=== PATIENT | female | born 1970 | race Caucasian/White ===

== ENCOUNTER 2016-09-04 14:57 | Emergency (ER) | payer OTHER ==
[~2016-09-04] VITALS: Ht 157.5 cm; Wt 51.3 kg
[~2016-09-04 14:57] MED LIST: TORADOL10 MG PO
[2016-09-04 16:02] LABS: ABSOLUTE BASOPHIL COUNT 0 /CUMM (0.0-0.2); ABSOLUTE EOSINOPHIL COUNT 0.1 /CUMM (0.0-0.7); ABSOLUTE GRANULOCYTE CT 4.4 /CUMM (1.4-6.5); ABSOLUTE LYMPH COUNT 2.3 /CUMM (1.2-3.4); ABSOLUTE MONOCYTE COUNT 0.4 /CUMM (0.10-0.60); BASOPHIL % 0.4 % (0.0-2.0); EOSINOPHIL % 1.2 % (0-5); GRANULOCYTE % 60.7 % (42.2-75.2); HEMATOCRIT 39.9 % (37-47); MEAN CORPUSCULAR HGB 30.4 PG (27.0-31.0); MEAN CORPUSCULAR HGB CONC 33.8 G/DL (33.0-37.0); MEAN CORPUSCULAR VOLUME 89.9 FL (81.0-99.0); MEAN PLATELET VOLUME 8.2 FL (7.4-10.4); PLATELET COUNT 314 /CUMM (130-400); RBC DISTRIBUTION WIDTH 13.9 % (11.5-14.5); RED BLOOD CELL CT 4.44 /CUMM (4.20-5.40); WHITE BLOOD CELL COUNT 7.2 /CUMM (4.8-10.8)
--- NOTE | 2016-09-04 16:19 | ED GENERAL ADULT ---
History of Present Illness General Chief Complaint: General Adult Stated Complaint: DIZZY,?LOW BP Source: patient, family, old records Exam Limitations: no limitations Vital Signs & Intake/Output Vital Signs & Intake/Output Vital Signs Date Time Temp Pulse Resp B/P Pulse O2 O2 Flow FiO2 Ox Delivery Rate 09/04 1729 96.5 73 18 104/52 100 Room Air 09/04 1529 98.3 78 15 124/84 100 Room Air Allergies Coded Allergies: No Known Allergies (09/04/16) Reconcile Medications Lorazepam 0.5 MG TABLET 1 TAB PO DAILY PRN ANXIETY (Reported) Multivitamin (Multi-Day Vitamins) 1 EACH TABLET 1 TAB PO DAILY SUPPLEMENT ( Reported) Norgestimate-Ethinyl Estradiol (Ortho Tri-Cyclen Lo Tablet) [id number] LO TABLET 1 TAB PO DAILY CONTROL (Reported) Triage Note: PT TO ED FOR DIZZINESS, NAUSEA, HAND AND ARM TINGLING WELL LIP TINGLING. DENIES CP, PALPITATIONS. REPORTING SHE WAS AT WORK AND "ALL OF SUDDEN FELT REALLY DIZZY." DENIES SYNCOPE OR LOC. Triage Nurses Notes Reviewed? yes HPI: Patient ate lunch at work this afternoon and on with active gas she began to feel nauseous and just not feeling right. Patient went and sat in the bathroom but symptoms escalated. Patient then felt very lightheaded to the point that she felt like she was in the past out. Patient noticed that her hands and her lips were tingling. Patient denied any chest pain or palpitations. The symptoms lasted in total approximately 45 minutes before her boss drove her into the emergency room for evaluation. Currently the patient feels fine. Patient denies any headache or blurry vision. Past History Travel History Traveled to [place] past 21 day No Medical History Any Pertinent Medical History? see below for history Neurological: NONE EENT: NONE Cardiovascular: NONE Respiratory: NONE Gastrointestinal: NONE Hepatic: NONE Renal: NONE Musculoskeletal: NONE Psychiatric: NONE Endocrine: NONE Blood Disorders: NONE Cancer(s): NONE PULP PILER/Reproductive: NONE Other Medical Hx: Anxiety Surgical History Surgical History: NONE Psychosocial History What is your primary language Sen[place]alese Tobacco Use: Never used ETOH Use: denies use Illicit Drug Use: denies illicit drug use Family History Hx Contributory? No Review of Systems Review of Systems Constitutional: Reports: see HPI, chills. EENTM: Reports: no symptoms. Respiratory: Reports: no symptoms. Cardiovascular: Reports: no symptoms. GI: Reports: see HPI, nausea. Genitourinary: Reports: no symptoms. Musculoskeletal: Reports: no symptoms. Skin: Reports: no symptoms. Neurological/Psychological: Reports: see HPI. Hematologic/Endocrine: Reports: no symptoms. Immunologic/Allergic: Reports: no symptoms. All Other Systems: Reviewed and Negative Physical Exam Physical Exam General Appearance: well developed/nourished, alert, awake, mild distress Head: atraumatic, normal appearance Eyes: Bilateral: PERRL, EOMI. Ears, Nose, Throat: normal pharynx, normal ENT inspection, hearing grossly normal Neck: normal inspection, supple, full range of motion Respiratory: normal breath sounds, chest non-tender, no respiratory distress, lungs clear Cardiovascular: regular rate/rhythm, normal peripheral pulses Gastrointestinal: normal bowel sounds, soft, non-tender, no organomegaly Back: normal inspection, normal range of motion Extremities: normal inspection, normal capillary refill, normal range of motion, no edema Neurologic/Psych: no motor/sensory deficits, awake, alert, oriented x 3, normal gait, normal mood/affect Skin: intact, normal color, warm/dry Lymphatic: no anterior cervical edmond Core Measures ACS in differential dx? Yes ASA ordered for poss ACS? No-ACS ruled out CVA/TIA Diagnosis: No Severe Sepsis Present: No Septic Shock Present: No Progress Differential Diagnoses I considered the following diagnoses in my evaluation of the patient: [ Electrolyte abnormality, AMI, vasovagal episode] Plan of Care: Orders Procedure Date/time Status TROPONIN LEVEL 09/04 1806 Active Telemetry/Salesperson Wigs 09/04 1628 Active TROPONIN LEVEL 09/04 1530 Complete COMPREHENSIVE METABOLIC PANEL 09/04 1530 Complete CBC WITHOUT DIFFERENTIAL 09/04 1530 Complete EKG 09/04 1530 Active Laboratory Tests 09/04/16 1818: Troponin I Pending 09/04/16 1353: Anion Gap 8, Estimated GFR > 60, BUN/Creatinine Ratio 20.0, Glucose 126 H, Calcium 9.3, Total Bilirubin 0.3, AST 19, ALT 30, Alkaline Phosphatase 50, Troponin I < 0.01, Total Protein 6.5, Albumin 3.9, Globulin 2.6, Albumin/ Globulin Ratio 1.5, CBC w Diff NO MAN DIFF REQ, RBC 4.44, MCV 89.9, MCH 30.4, RDW 13.9, MPV 8.2, Gran % 60.7, Lymphocytes % 31.6, Monocytes % 6.1, Eosinophils % 1.2, Basophils % 0.4, Absolute Granulocytes 4.4, Absolute Lymphocytes 2.3, Absolute Monocytes 0.4, Absolute Eosinophils 0.1, Absolute Basophils 0, PUBS MCHC 33.8 Initial ED EKG: ATRIAL RHYTHM WITH A SHORTENED MUSTAPHA. NO ISCHEMIC CHANGES. Rhythm Strip: normal sinus rhythm Departure Departure Disposition: HOME OR SELF CARE Condition: Stable Clinical Impression Primary Impression: Near syncope Referrals: KEL JUÁRZE,ASHKAN Sinha (PCP/Family) CONSUELO JUÁREZ PhD,ADELE Sinha Additional Instructions: RETURN IF SYMPTOMS COME BACK OR FOR ANY CONCERNS Departure Forms: Customer Survey General Discharge Information Critical Care Note Critical Care Note Critical Care Time: non-applicable
[2016-09-04] MEDS ORDERED: ORTHO TRI-CYCL1 EAC1 PO (16:50)
[2016-09-04] MEDS ORDERED: LORAZEPAM0.5 M1 PO (16:51)
[2016-09-04] MEDS ORDERED: MULTI-DAY VITA1 EACH PO (16:51)
[2016-09-04 19:18] VITALS: BP 108/69
== END 2016-09-04 19:19 ==
LOC: ERH 14:57
PROVIDERS: Emergency Medicine
DX: R55 Syncope and collapse (principal); R11.0 Nausea; R42 Dizziness and giddiness
CPT/HCPCS: 93005; 93010